=== PATIENT | male | born 1970 | race Hispanic/Latino ===

== ENCOUNTER 2017-11-09 05:56 | Emergency (ER) | payer OTHER ==
[~2017-11-09] VITALS: Ht 172.7 cm; Wt 72.6 kg
[~2017-11-09 05:56] MED LIST: AUGMENTIN 875-1 EACH PO; IBUPROFEN800 M1 PO; INDOMETHACIN25 M1 PO; TESSALON PERLE100 M1 PO
[2017-11-09 06:09] VITALS: BP 125/73
[2017-11-09] MEDS ORDERED: DICLOFENAC SODI75 M2 PO (06:18)
--- NOTE | 2017-11-09 06:19 | ED UPPER/LOWER EXTREMITY COMPL ---
History of Present Illness General Chief Complaint: Shoulder Injury Stated Complaint: R SHOULDER PAIN Source: patient Exam Limitations: no limitations Vital Signs & Intake/Output Vital Signs & Intake/Output Vital Signs Date Time Temp Pulse Resp B/P B/P Pulse O2 O2 Flow FiO2 Mean Ox Delivery Rate 11/09 0513 100 Room Air 11/09 608 97.8 81 20 125/73 97 Room Air Allergies Coded Allergies: No Known Drug Allergies (10/02/16) Reconcile Medications Diclofenac Sodium 75 MG TABLET. 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 PATIENT DENIES PAIN TO ANY OTHER SITES. MD FUENTES IN TRIAGE FOR EVAL. Triage Nurses Notes Reviewed? yes HPI: Patient presents for evaluation of a severe constant throbbing right shoulder pain that began gradually overnight after shoveling snow. Pain worsens with palpation and movement. Patient denies any other injury. He denies trauma to the area other than shoveling snow. Past History Travel History Traveled to [place] past 21 day No Medical History Any Pertinent Medical History? see below for history Neurological: NONE EENT: NONE Cardiovascular: NONE Respiratory: pneumonia Gastrointestinal: NONE Hepatic: NONE Renal: NONE Musculoskeletal: NONE Psychiatric: NONE Endocrine: NONE Blood Disorders: NONE Cancer(s): NONE UNDERWRITING CLERK/Reproductive: NONE Surgical History Surgical History: none Psychosocial History What is your primary language Welsh Tobacco Use: Current Daily Use Daily Tobacco Use Amount/Type: => 5 Cigarettes daily Family History Hx Contributory? No Review of Systems Review of Systems Constitutional: Reports: no symptoms. EENTM: Reports: no symptoms. Respiratory: Reports: no symptoms. Cardiovascular: Reports: no symptoms. Gastrointestinal/Abdominal: Reports: no symptoms. Genitourinary: Reports: no symptoms. Musculoskeletal: Reports: see HPI. Skin: Reports: no symptoms. Neurological/Psychological: Reports: no symptoms. Hematologic/Endocrine: Reports: no symptoms. Immunological: Reports: no symptoms. All Other Systems: Reviewed and Negative Physical Exam Physical Exam General Appearance: see below Comments: Gen.: Well-nourished, well-developed, no acute respiratory distress. Head: Normocephalic, atraumatic. Eyes: Normal inspection bilaterally Ears: Normal inspection bilaterally Nose: Normal inspection Throat/mouth : Moist mucosa Neck: Supple, full range of motion, no goiter Heart: Regular rate and rhythm Lungs: Quiet respirations Back: Normal range of motion Extremities: Right shoulder: No obvious soft tissue swelling or ecchymoses, tenderness over the before meals joint to palpation. There is no apparent discomfort with range of motion of the glenohumeral joint. The right upper extremity is neurovascularly intact distally. Neurologic: Cranial nerves grossly intact, speech is clear Skin: warm and dry Psychiatric: Calm, cooperative, no apparent delusions or hallucinations Progress Differential Diagnosis: contusion, sprain Plan of Care: Orders Procedure Date/time Status Durable Medical Equipment 11/09 619 Active see discharge instructions Departure Departure Disposition: HOME OR SELF CARE Condition: Stable Clinical Impression Primary Impression: Arthralgia of right acromioclavicular joint Referrals: Patient Has No Primary Care Dr (PCP/Family) Additional Instructions: Diclofenac as prescribed for pain. Ice to the painful area over the next 48 hours then switch to heat. Use the arm sling as needed for comfort. Follow-up with your primary care physician in 2 weeks if not improved (if you do not have a primary care doctor please contact the [place] primary care practice at [phone]. Return immediately if any concerns or sudden worsening. Thank you for choosing the [facility] Emergency Department for your care. It was a pleasure to serve you today. Raffy Fuentes M.D. [facility] Departure Forms: Customer Survey General Discharge Information Prescriptions: Current Visit Scripts Diclofenac Sodium 1 TAB PO BID PRN PAIN #14 TAB
== END 2017-11-09 06:40 ==
LOC: ERH 05:56
DX: M25.511 Pain in right shoulder (principal)

== ENCOUNTER 2018-02-21 11:27 | Emergency (ER) | payer SELFPAY ==
[~2018-02-21] VITALS: Ht 172.7 cm; Wt 76.2 kg
[~2018-02-21 11:27] MED LIST changes: +DICLOFENAC SODI75 M2 PO
[2018-02-21 11:31] VITALS: BP 149/90
== END 2018-02-21 13:31 | disposition admitted as inpatient to this hospital (09) ==
LOC: ERH 11:27
DX: Z76.0 Encounter for issue of repeat prescription (principal)